=== PATIENT | male | born 1970 | race Hispanic/Latino ===

== ENCOUNTER 2018-12-16 02:41 | Inpatient (IN) | payer BC ==
[~2018-12-16] VITALS: Ht 177.8 cm; Wt 104.8 kg
[2018-12-16] MEDS ORDERED: ASPIRIN 325 MG TABLET ONE (02:46)
[2018-12-16 03:13] LABS: BASOPHILS % (AUTO) 0.5 % (0.0-5.0); EOSINOPHILS % (AUTO) 5.9 % (0.0-8.0); HEMATOCRIT 45.4 % (42-54); LYMPHOCYTES % (AUTO) 30.8 % (21.0-51.0); MEAN CORPUSCULAR HEMOGLOBIN 31.9 pg (27.0-33.0); MEAN CORPUSCULAR HGB CONC 34.7 g/dL (32.0-36.0); MONOCYTES % (AUTO) 8.9 % (3.0-13.0); NEUTROPHILS % (AUTO) 53.9 % (40.0-77.0); NUCLEATED RED BLOOD CELLS 0.1 % (0.0-0.19); PLATELET COUNT (AUTO) 206 K/uL (130-400); RED BLOOD CELL COUNT(AUTO) 4.93 MIL/uL (4.50-6.20)
[2018-12-16 03:15] LABS: POTASSIUM 3.6 mmol/L (3.5-5.1)
[2018-12-16 03:20] LABS: BILIRUBIN,TOTAL 0.3 mg/dL (0.2-1.0); TOTAL PROTEIN, SERUM 8.2 g/dL (6.0-8.3)
[2018-12-16 03:32] LABS: INR 0.94 (0.85-1.15); PARTIAL THROMBOPLASTIN TIME 26.6 SEC (26.3-35.5); PROTHROMBIN TIME 9.9 SEC (9.6-11.6)
[2018-12-16 03:46] LABS: AMPHET/METH SCREEN,URINE NEGATIVE (NEGATIVE); BARBITURATE SCREEN, URINE NEGATIVE (NEGATIVE); BENZODIAZEPINES SCREEN,URINE NEGATIVE (NEGATIVE); CANNABINOID SCREEN,URINE NEGATIVE (NEGATIVE); COCAINE SCREEN,URINE NEGATIVE (NEGATIVE); OPIATE SCREEN,URINE NEGATIVE (NEGATIVE); PHENCYCLIDINE SCREEN,URINE NEGATIVE (NEGATIVE)
[2018-12-16] MEDS ORDERED: GUAIFENESIN-DM 200/20 MG 10 ML PO PRN (06:15)
[2018-12-16] MEDS ORDERED: MAG HYDROX/AL HYDROX/SIMETH ES 30 ML SUSP UDCUP PO PRN (06:15)
[2018-12-16] MEDS ORDERED: ACETAMINOPHEN 325 MG TAB PO PRN (06:15)
[2018-12-16] MEDS ORDERED: SODIUM CHLORIDE 0.9% 10 ML VIAL IVP SCH (06:15)
[2018-12-16] MEDS ORDERED: NITROGLYCERIN 0.4 MG SL TAB SL PRN (06:15)
[2018-12-16] MEDS ORDERED: GUAIFENESIN SUGAR-FREE 100 MG/5 ML UDCUP PO PRN (06:15)
[2018-12-16] MEDS ORDERED: ONDANSETRON HCL 4 MG/2 ML VIAL IVP PRN (06:15)
[2018-12-16] MEDS ORDERED: ZOLPIDEM TARTRATE 5 MG TAB PO PRN (06:15)
[2018-12-16] MEDS ORDERED: CLONIDINE HCL 0.1 MG TABLET PO PRN (06:15)
[2018-12-16] MEDS ORDERED: LACTULOSE 20 GM/30 ML UDCUP PO PRN (06:15)
[2018-12-16] MEDS ORDERED: DIPHENHYDRAMINE HCL 25 MG CAPSULE PO PRN (06:15)
[2018-12-16] MEDS ORDERED: DiphenhydrAMINE HCL 50 MG/ML VIAL IVP PRN (06:15)
[2018-12-16 07:40] LABS: TROPONIN I 0.41 ng/mL (0.00-0.06)
[2018-12-16] MEDS ORDERED: NITROGLYCERIN 1GM/1 INCH PACKET TD ONE (08:37)
[2018-12-16 11:24] LABS: TROPONIN I 1.38 ng/mL (0.00-0.06)
[2018-12-16 12:45] VITALS: BP 127/71
--- NOTE | 2018-12-16 12:45 | NUR ---
ADMISSION PT RECEIVED FROM ER VIA STRETCHER. PT WALKED SELF FROM STRETCHER TO HOSPITAL BED. TOLERATED WELL. NO DISTRESS NOTED. A/O X 3. DENIES CHEST PAIN OR DISCOMFORT @ THIS TIME. DENIES PALPITATIONS. TELE: SB 50-60s. DR AARON PENDING TO COME SEE PT, UNTIL THEN PT TO BE NPO. PT INFORMED & NPO STATUS EXPLAINED. STATES UNDERSTANDING. DENIES N/V AND/OR DIARRHEA. ONLY HX OF HTN, EX SMOKER. HOME MEDS RECONCILED. BR W/BRP. ORIENTED TO RM. INSTRUCTED TO CALL FOR ASSISTANCE. CALL [place] W/IN REACH.
[2018-12-16] MEDS ORDERED: TERB250T51 PO (12:52)
[2018-12-16] MEDS ORDERED: LISI40TA4 PO (12:52)
[2018-12-16] MEDS ORDERED: AMLO10TA4 PO (12:52)
[2018-12-16] MEDS: NITROGLYCERIN 1GM/1 INCH PACKET TD SCH ×3 (13:09→23:49)
[2018-12-16] MEDS: ASPIRIN 325 MG TABLET PO SCH (13:10)
[2018-12-16] MEDS ORDERED: MORPHINE SULFATE 4 MG/1ML SYG IVP PRN (15:30)
--- NOTE | 2018-12-16 15:53 | NUR ---
MD NOTIFICATION DR AARON NOTIFIED OF TROPONIN OF 3.59. ORDER RECEIVED TO SCHEDULE C POSS PTCA POSS STENT FOR 12/18/18. PT NOTIFIED.
--- NOTE | 2018-12-16 15:53 | NUR ---
CARDIOLOGY CONSULT DR AARON IN TO SEE PT. UPDATED ON PT'S STATUS. PLAN OF CARE REVIEWED W/PT BY . PT MAY HAVE DINNER. PLAN FOR [facility] ON TUESDAY. Addendum: 12/17/18 at 1937 by ADRIÁN GURROLA RN RN ERROR ENTRY. DR AARON IN TO SEE PT @ 2297.
[2018-12-16 16:00] VITALS: BP_SYST 121; BP_SYST 140; BP_DIAS 75; BP_DIAS 85
[2018-12-16] MEDS ORDERED: ENOXAPARIN SODIUM 100 MG/1 ML SQ SCH (16:15)
[2018-12-16 19:27] VITALS: BP 139/88
[2018-12-16] MEDS: ENOXAPARIN SODIUM 100 MG/1 ML SQ SCH (20:10)
[2018-12-16] MEDS: METOPROLOL TARTRATE 25 MG TAB PO SCH (20:10)
[2018-12-16] MEDS: ATORVASTATIN CALCIUM 40 MG TABLET PO SCH (20:10)
[2018-12-16 23:33] VITALS: BP 138/80
[2018-12-16] MEDS: ACETAMINOPHEN 325 MG TAB PO PRN (23:50)
[2018-12-17 03:48] VITALS: BP 125/75
[2018-12-17] MEDS: NITROGLYCERIN 1GM/1 INCH PACKET TD SCH ×4 (05:24→23:25)
[2018-12-17 07:14] VITALS: BP 129/82
[2018-12-17] MEDS: METOPROLOL TARTRATE 25 MG TAB PO SCH ×2 (08:14→20:05)
[2018-12-17] MEDS: ENOXAPARIN SODIUM 100 MG/1 ML SQ SCH ×2 (08:14→18:59)
[2018-12-17] MEDS: ASPIRIN 325 MG TABLET PO SCH (08:14)
--- NOTE | 2018-12-17 08:15 | NUR ---
AM ASSESSMENT PT LAYING IN BED, HOB ELEVATED 30 DEGREES, WATCHING TV. A/O X 3. NO SOB. NO DISTRESS NOTED. DENIES CHEST PAIN OR DISCOMFORT. DENIES PALPITATIONS. TELE: SB 50-SR 60s. DENIES N/V AND/OR DIARRHEA. UP AD RADHA. INSTRUCTED TO CALL FOR ASSISTANCE. CALL [place] W/IN REACH.
[2018-12-17] MEDS ORDERED: DiphenhydrAMINE HCL 50 MG/ML VIAL IVP PRN (10:30)
[2018-12-17] MEDS: SODIUM CHLORIDE 0.9% 1000ML 1,000 ML IV SCH ×2 (10:54→18:37)
[2018-12-17 11:03] LABS: CREATININE 0.8 mg/dL (0.5-1.5); HEMATOCRIT 42.1 % (42-54); MEAN CORPUSCULAR HEMOGLOBIN 31.6 pg (27.0-33.0); MEAN CORPUSCULAR HGB CONC 34.2 g/dL (32.0-36.0); MEAN CORPUSCULAR VOLUME 92.2 fL (79-99); NUCLEATED RED BLOOD CELLS 0.1 % (0.0-0.19); PLATELET COUNT (AUTO) 187 K/uL (130-400); POTASSIUM 3.9 mmol/L (3.5-5.1); RED BLOOD CELL COUNT(AUTO) 4.57 MIL/uL (4.50-6.20); RED CELL DISTRIBUTION WIDTH 13.8 % (11.0-15.5); WHITE BLOOD COUNT (AUTO) 6.4 K/uL (4.8-10.8)
[2018-12-17 11:12] VITALS: BP 126/80
[2018-12-17 11:39] LABS: INR 0.95 (0.85-1.15)
[2018-12-17 12:14] LABS: PARTIAL THROMBOPLASTIN TIME 33.2 SEC (26.3-35.5)
--- NOTE | 2018-12-17 15:00 | NUR ---
GREG Holden met with pt and Hilton Talavera [phone]. Pt works at [employer], is independent, no DME or HH services. Pt denies dc needs, plan is home with family. CM to follow and assist as needed Addendum: 12/17/18 at 1502 by [facility]SE SS Amended: Links added.
[2018-12-17 15:10] VITALS: BP 121/73
[2018-12-17 19:43] VITALS: BP 133/85
[2018-12-17] MEDS: ATORVASTATIN CALCIUM 40 MG TABLET PO SCH (20:05)
[2018-12-17 23:39] VITALS: BP 141/88
[2018-12-18] VITALS (11 sets, daily range): BP systolic 114–148; BP diastolic 72–97
[2018-12-18] MEDS: SODIUM CHLORIDE 0.9% 1000ML 1,000 ML IV SCH ×2 (03:37→12:05)
[2018-12-18 03:40] LABS: MEAN CORPUSCULAR HEMOGLOBIN 32.1 pg (27.0-33.0); MEAN CORPUSCULAR HGB CONC 34.7 g/dL (32.0-36.0); MEAN CORPUSCULAR VOLUME 92.5 fL (79-99); NUCLEATED RED BLOOD CELLS 0.1 % (0.0-0.19); PLATELET COUNT (AUTO) 183 K/uL (130-400); RED BLOOD CELL COUNT(AUTO) 4.54 MIL/uL (4.50-6.20); RED CELL DISTRIBUTION WIDTH 13.7 % (11.0-15.5)
[2018-12-18 04:14] LABS: CREATININE 0.9 mg/dL (0.5-1.5)
[2018-12-18] MEDS: NITROGLYCERIN 1GM/1 INCH PACKET TD SCH ×3 (05:21→17:55)
[2018-12-18] MEDS: ASPIRIN 325 MG TABLET PO SCH (07:37)
[2018-12-18] MEDS: METOPROLOL TARTRATE 25 MG TAB PO SCH ×2 (07:37→20:46)
[2018-12-18] MEDS: ENOXAPARIN SODIUM 100 MG/1 ML SQ SCH (07:38)
[2018-12-18] MEDS ORDERED: LIDOCAINE HCL 1% 20 ML VIAL ONE (16:24)
[2018-12-18] MEDS ORDERED: IOHEXOL 350 MG/ML 100ML INFUS..BTL IV ONE ×3 (16:25→18:42)
[2018-12-18] MEDS ORDERED: NITROGLYCERIN 5 MG/ML 10 ML VIAL IV ONE (16:25)
[2018-12-18] MEDS ORDERED: IOHEXOL-350 50ML VIAL IV ONE (16:25)
[2018-12-18] MEDS ORDERED: DiphenhydrAMINE HCL 50 MG/ML VIAL ONE (16:55)
[2018-12-18] MEDS ORDERED: MIDAZOLAM HCL 1 MG/ML 2ML VIAL ONE (17:13)
[2018-12-18] MEDS ORDERED: FENTANYL CITRATE PF 50 MCG/1 ML 2ML VIAL ONE (17:13)
[2018-12-18] MEDS ORDERED: HEPARIN SODIUM 1000UNIT/ML 10ML VIAL ONE (17:35)
[2018-12-18] MEDS ORDERED: BIVALIRUDIN 250 MG/VIAL IV ONE ×2 (17:50→18:27)
[2018-12-18] MEDS ORDERED: ASPIRIN 325MG EC TAB 325 MG TABLET.DR PO ONE (19:08)
[2018-12-18] MEDS ORDERED: TICAGRELOR 90 MG TABLET ONE (19:08)
[2018-12-18] MEDS ORDERED: SODIUM CHLORIDE 0.9% 1000ML 1,000 ML IV SCH (19:36)
[2018-12-18] MEDS ORDERED: MORPHINE SULFATE 5 MG/ML VIAL IVP SCH ×2 (19:45)
[2018-12-18] MEDS ORDERED: ACETAMINOPHEN-CODEINE 300/30MG TAB PO PRN ×2 (19:45)
[2018-12-18] MEDS ORDERED: NITROGLYCERIN 50 MG/D5% WATER 1 BOT IV PRN (19:45)
[2018-12-18] MEDS ORDERED: CLOPIDOGREL BISULFATE 300 MG TAB PO SCH (19:45)
[2018-12-18] MEDS ORDERED: ONDANSETRON HCL 4 MG/2 ML VIAL IVP SCH (19:45)
[2018-12-18] MEDS ORDERED: ONDANSETRON HCL 4 MG/2 ML VIAL IVP PRN (19:45)
[2018-12-18] MEDS ORDERED: TEMAZEPAM 30 MG CAP PO PRN (19:45)
--- NOTE | 2018-12-18 19:55 | NUR ---
REPORT RECEIVED FROM INFORMATION AND DATA ARCHITECT ANALYST. PT S/P LEFT HEART CATH. AWARE. PT HAD 4 STENTS. NO DISTRESS NOTED.
[2018-12-18] MEDS: ATORVASTATIN CALCIUM 40 MG TABLET PO SCH (20:46)
[2018-12-19] MEDS: SODIUM CHLORIDE 0.9% 1000ML 1,000 ML IV SCH (00:35)
[2018-12-19] MEDS: ACETAMINOPHEN 325 MG TAB PO PRN (00:38)
[2018-12-19] MEDS: NITROGLYCERIN 1GM/1 INCH PACKET TD SCH ×2 (00:38→05:40)
[2018-12-19 03:56] VITALS: BP 132/80
[2018-12-19 04:03] LABS: HEMATOCRIT 42.5 % (42-54); MEAN CORPUSCULAR HGB CONC 33.6 g/dL (32.0-36.0); MEAN CORPUSCULAR VOLUME 92.1 fL (79-99); PLATELET COUNT (AUTO) 202 K/uL (130-400); RED BLOOD CELL COUNT(AUTO) 4.62 MIL/uL (4.50-6.20); RED CELL DISTRIBUTION WIDTH 13.8 % (11.0-15.5); WHITE BLOOD COUNT (AUTO) 7.5 K/uL (4.8-10.8)
[2018-12-19] MEDS: TICAGRELOR 90 MG TABLET PO SCH ×2 (06:14→08:24)
[2018-12-19 07:51] VITALS: BP 134/92
[2018-12-19] MEDS: METOPROLOL TARTRATE 25 MG TAB PO SCH (08:24)
[2018-12-19] MEDS ORDERED: ASPIRIN 81MG TAB.CHEW PO SCH (09:00)
[2018-12-19] MEDS ORDERED: PANTOPRAZOLE SODIUM 40 MG TABLET.DR PO SCH (09:00)
[2018-12-19] MEDS ORDERED: CLOPIDOGREL BISULFATE 75 MG TAB PO SCH (09:00)
[2018-12-19] MEDS ORDERED: ROSU20TA31 PO (10:37)
[2018-12-19] MEDS ORDERED: AEC81 PO (10:37)
[2018-12-19] MEDS ORDERED: TICA90TA PO (10:38)
[2018-12-19] MEDS ORDERED: METO25TA6 PO (10:38)
[2018-12-19 11:01] VITALS: BP 131/78
== END 2018-12-19 12:09 | disposition home or self-care (01) | DRG 246 ==
LOC: EDH 02:41 → EDHIP 05:47 → OBSVTOIN 05:47 → 2DH 12:51
PROVIDERS: ADMIT Family Medicine; ATTEND Family Medicine
PROC: 4A023N7 Measurement of Cardiac Sampling and Pressure, Left Heart, Percutaneous Approach (ICD-10-PCS; principal; 2018-12-18)
PROC: 027237Z Dilation of Coronary Artery, Three Arteries with Four or More Drug-eluting Intraluminal Devices, Percutaneous Approach (ICD-10-PCS; 2018-12-18)
PROC: B2111ZZ Fluoroscopy of Multiple Coronary Arteries using Low Osmolar Contrast (ICD-10-PCS; 2018-12-18)
PROC: B2151ZZ Fluoroscopy of Left Heart using Low Osmolar Contrast (ICD-10-PCS; 2018-12-18)
DX: I21.9 Acute myocardial infarction, unspecified (principal); I10 Essential (primary) hypertension; I25.10 Atherosclerotic heart disease of native coronary artery without angina pectoris
CPT/HCPCS: 36415; 71045; 80048; 80053; 80305; 82550; 83874; 84484; 85025; 85027; 85378; 85610; 85730; 93005; 93306; 93458; 99156; 99157; C1725; C1760; C1769; C1887; C1894; C9600; C9606; G0378; J0583; J1200; J1644; J1650; J2250; J3010; J3490; J7030; Q9967

== ENCOUNTER → 2024-05-29 | Outpatient (CLI) | payer BC ==
[~2024-05-29] MED LIST: AEC81 PO; AMLO10TA4 PO; LISI40TA9 PO; METO25TA6 PO; ROSU20TA98 PO; TERB250T89 PO; TICA90TA PO
--- NOTE | 2024-05-29 13:47 | HMCIMG ---
Exam Type: MR KNEE RIGHT WO Clinical Information: S83.241A Other tear of medial meniscus, current injury, right knee, initial Comparison: None Technique: MRI of the knee was done with triplane localizer, axial T2 as well as sagittal proton density T2, T1, and fat-saturated T2. In addition, coronal T1 and coronal fat-saturated spin-echo sequences are available for review. FINDINGS: There is a complex tear of the posterior horn of the medial meniscus with inferior articular surface involvement. No other meniscal tears are present. There is loss of articular cartilage particularly of the medial compartment with marginal osteophytosis and there is a moderate joint effusion. The cruciate and collateral ligaments are intact. No periarticular soft tissue abnormalities are seen. There are no other gross abnormalities. IMPRESSION: Complex tear posterior horn medial meniscus with inferior articular surface involvement. Other findings as described.
== END | disposition home or self-care (01) ==
LOC: RAH 12:42
PROVIDERS: ATTEND Orthopaedic Surgery
DX: S83.231A Complex tear of medial meniscus, current injury, right knee, initial encounter (principal); M25.461 Effusion, right knee; M25.761 Osteophyte, right knee; X58.XXXA Exposure to other specified factors, initial encounter; Y93.89 Activity, other specified; Y92.89 Other specified places as the place of occurrence of the external cause; Y99.8 Other external cause status
CPT/HCPCS: 73721